=== PATIENT | male | born 1995 | race Caucasian/White ===

== ENCOUNTER 2022-12-13 07:44 | Day surgery (SDC) | payer OTHER ==
[~2022-12-13] VITALS: Ht 193 cm; Wt 113.6 kg
[~2022-12-13 07:44] MED LIST: CETIRIZINE HCL10 MG PO; DICYCLOMINE HCL10 MG PO
--- NOTE | 2022-12-13 10:09 | NUR ---
12/13/22 Christa9 Qing Fung 1006-PATIENT ARRIVED TO PACU ON RA RR EVEN. PATIENT AWAKE DENIES PAIN OR NAUSEA. IVF INFUSING. ABDOMEN SOFT. PATIENT DOZES BACK TO SLEEP
--- NOTE | 2022-12-13 12:55 | NUR ---
PT ALERT, ORIENTED AND RN BASIL IS FINISHING UP PREP. GAVE ENCOURAGEMENT AND BLESSING. WILL FOLLOW NEEDED
--- NOTE | 2022-12-13 15:17 | OR ---
[facility] [address], [place] [address] Signed DATE OF OPERATION: 12/13/2022 SURGEON: Navin Nunez MD PREOPERATIVE DIAGNOSIS: Persistent fecal urgency and diarrhea greater than two years. POSTOPERATIVE DIAGNOSES: Grossly normal colon and ileum; small hyperplastic polyp of rectum. PROCEDURE: 1. Total colonoscopy to cecum with intubation of ileum and biopsies. 2. Cold morcellation polypectomy and small hyperplastic polyp of rectum. ANESTHESIA: Intravenous sedation; fentanyl 100 mcg and Versed 8 mg. INDICATION: This 27-year-old white man is a patient Dr. Loaiza and son of Dr. Ad Martínez, family physician now retired from [place], [place]. 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 The patient has had rather significant and worsening fecal urgency and diarrhea. He has approximately six bowel movements a day. He has no blood per rectum. He is not known to have had enteric infection in the past. He has no family history of inflammatory bowel disease, though he does have family history of colon cancer in a paternal grandmother. He has not had evaluation of his colon up to this point. He is now recommended to undergo colonoscopy to better characterize the problem. He understands the risk of bleeding, infection, and perforation. FINDINGS: The prep was excellent. Complete colonoscopy was undertaken to the cecum and intubation of the ileum was accomplished without problem as well. The ileum and colon all appeared normal. There is no evidence of overt colitis, diverticular disease, or cancer. There was a small hyperplastic polyp of the rectum, which was excised. DESCRIPTION OF PROCEDURE: The patient was brought to the endoscopy suite and placed in the lateral decubitus position, given intravenous sedation to the point of slurred speech and nystagmus. Full cardiopulmonary monitoring was maintained. Digital rectal examination was normal. An Olympus video colonoscope was passed in the rectum and manipulated throughout the Electronically Signed By: NAVIN NUNEZ MD 12/13/22 1517 PATIENT NAME: NICOLE MARTÍNEZ OPERATIVE REPORT DATE OF : [birth year] REPORT #: [id number] PHYSICIAN: NAVIN NUNEZ MD PCP: NAIN LOAIZA MD REPORT IS CONFIDENTIAL AND NOT TO BE RELEASED WITHOUT AUTHORIZATION [facility] [address], [place] [address] Signed colon ultimately intubating the cecum itself. The ileocecal valve and appendiceal orifice were normal. The ileocecal valve was easily intubated and the scope passed approximately 10 cm into it. There is no evidence of Crohn disease. Villous structures were entirely normal. Biopsies were taken nevertheless. The scope was withdrawn to the cecum where biopsies were additionally taken and sequential biopsies taken throughout the entire colon. There is no overt colitis, diverticular disease, or cancer. There is a small hyperplastic polyp of the rectum, which was excised as well. Retroflexed view was normal as well. The scope was removed and the patient was taken to the recovery room in good condition. CONCLUDING DIAGNOSIS: No evidence of colitis, though possibility of microscopic colitis (collagenous colitis, lymphocytic colitis, etc.) remains pending biopsy results. For now, we will empirically treat with Flagyl 250 mg p.o. t.i.d. with special instructions to avoid alcohol during that medication course. If this does not improve his symptoms and no overt findings of microscopic colitis are noted on pathologic evaluation, then symptom control may be initiated to include loperamide 2 mg tablets two tablets p.o. b.i.d. advancing to no more than 16 mg daily. The possibility of celiac disease (gluten enteropathy) is considered as well. A gluten enteropathy panel will be obtained today as well. Navin Nunez MD /SONIAL /[id number] cc: DO Nain Singh MD Copies: AD MARTÍNEZ RUSSELL BARR MD ~ Electronically Signed By: NAVIN NUNEZ MD 12/13/22 1517 PATIENT NAME: ISA MARTÍNEZCHARY VON OPERATIVE REPORT DATE OF : [birth year] REPORT #: [id number] PHYSICIAN: NAVIN NUNEZ MD PCP: NAIN LOAIZA MD REPORT IS CONFIDENTIAL AND NOT TO BE RELEASED WITHOUT AUTHORIZATION
--- NOTE | 2022-12-17 13:09 | PATH ---
[facility] [address], [place] [address] Signed SPECIMEN(S): A TERMINAL ILEUM BIOPSIES SPECIMEN(S): B CECUM BIOPSIES SPECIMEN(S): C ASCENDING/RIGHT COLON BIOPSIES SPECIMEN(S): D TRANSVERSE COLON BIOPSIES SPECIMEN(S): E DESCENDING/LEFT COLON BIOPSIES SPECIMEN(S): F SIGMOID COLON BIOPSIES SPECIMEN(S): G RECTAL POLYP SPECIMEN(S): H RECTUM BIOPSIES SPECIMEN SOURCE: A. TERMINAL ILEUM BIOPSIES B. CECUM BIOPSIES C. ASCENDING/RIGHT COLON BIOPSIES D. TRANSVERSE COLON BIOPSIES E. DESCENDING/LEFT COLON BIOPSIES F. SIGMOID COLON BIOPSIES G. RECTAL POLYP H. RECTUM BIOPSIES CLINICAL HISTORY: Chronic diarrhea. Postop: Hyperplastic polyp of rectum. FINAL PATHOLOGIC DIAGNOSIS: A. Terminal ileum, biopsy: - Terminal ileum mucosa with normal villous architecture. - Negative for acute, chronic, and granulomatous inflammation. - Negative for dysplasia and malignancy. B. Cecum, biopsy: - Colonic mucosa with normal glandular architecture. - Subepithelial collagen layer is normal in thickness. - Negative for inflammation, dysplasia and malignancy. C. Ascending/right colon, biopsy: - Colonic mucosa with normal glandular architecture. - Subepithelial collagen layer is normal in thickness. - Negative for inflammation, dysplasia and malignancy. D. Transverse colon, biopsy: - Colonic mucosa with normal glandular architecture. - Subepithelial collagen layer is normal in thickness. - Negative for inflammation, dysplasia and malignancy. E. Descending/left colon, biopsy: - Colonic mucosa with normal glandular architecture. PATIENT NAME: NICOLE MARTÍNEZ PATHOLOGY DATE OF : [birth year] REPORT #: [id number] PHYSICIAN: GAMAL BLACK PCP: NAIN MACIAS MD REPORT IS CONFIDENTIAL AND NOT TO BE RELEASED WITHOUT AUTHORIZATION [facility] [address], [place] [address] Signed - Subepithelial collagen layer is normal in thickness. - Negative for inflammation, dysplasia and malignancy. F. Sigmoid colon, biopsy: - Colonic mucosa with normal glandular architecture. - Subepithelial collagen layer is normal in thickness. - Negative for inflammation, dysplasia and malignancy. G. Rectal polyp, biopsy: - Hyperplastic polyp; 1 of 2 pieces. - Unremarkable colonic mucosa; 1 of 2 pieces. - Negative for inflammation, dysplasia and malignancy. H. Rectum, biopsy: - Rectal mucosa with normal glandular architecture. - Subepithelial collagen layer is normal in thickness. - Negative for inflammation, dysplasia and malignancy. SDL:manuels:C2NR MICROSCOPIC EXAMINATION: Histologic sections of all submitted blocks are examined by light microscopy. These findings, together with the gross examination, support the pathologic diagnosis. GROSS DESCRIPTION: A. The specimen, labeled and designated "Ronelki, terminal ileum biopsies," is received in formalin and consists of multiple dave soft tissue fragments, 0.1-0.3 cm. Entirely submitted in (A1). B. The specimen, labeled and designated "Szumski, cecum colon biopsies," is received in formalin and consists of four dave soft tissue fragments, ranging from 0.2-0.5 cm. Entirely submitted in (B1). C. The specimen, labeled and designated "Dylonumski, ascending/right colon biopsy," is received in formalin and consists of four dave soft tissue fragments, ranging from 0.2-0.4 cm. Entirely submitted in (C1). D. The specimen, labeled and designated "Szumski, transverse colon biopsies," is received in formalin and consists of six dave soft tissue fragments, ranging from 0.1-0.2 cm. Entirely submitted in (D1). E. The specimen, labeled and designated "Alexx, descending/left colon biopsy," is received in formalin and consists of three dave soft tissue fragments, ranging from 0.2-0.3 cm. Entirely submitted in (E1). PATIENT NAME: NICOLE MARTÍNEZ PATHOLOGY DATE OF : [birth year] REPORT #: [id number] PHYSICIAN: GAMAL BLACK PCP: NAIN MACIAS MD REPORT IS CONFIDENTIAL AND NOT TO BE RELEASED WITHOUT AUTHORIZATION [facility] [address], [place] [address] Signed F. The specimen, labeled and designated "Alexx, sigmoid colon biopsies," is received in formalin and consists of four dave soft tissue fragments, ranging from 0.3-0.4 cm. Entirely submitted in (F1). G. The specimen, labeled and designated "Alexx, rectal polyp," is received in formalin and consists of one dave soft tissue fragment, 0.4 cm. Entirely submitted in (G1). H. The specimen, labeled and designated "Alexx, rectum biopsies," is received in formalin and consists of five dave soft tissue fragments, ranging from 0.2-0.3 cm. Entirely submitted in (H1). VB (under the direct supervision of a pathologist) The Gross Description was prepared using a voice recognition system. The report was reviewed for accuracy; however, sound-alike word errors, addition and/or deletions may occur. If there is any question about this report, please contact Client Services. PERFORMING LABORATORY: The technical component was performed by [facility], [address] [place] [address] (CLIA# [id number]). Professional interpretation was performed at [facility], [address] [place] [address]. Diagnostician: Coni Clay MD Pathologist Electronically Signed 12/17/2022 Copies: ~ PATIENT NAME: NICOLE MARTÍNEZ PATHOLOGY DATE OF : [birth year] REPORT #: [id number] PHYSICIAN: GAMAL BLACK PCP: NAIN MACIAS MD REPORT IS CONFIDENTIAL AND NOT TO BE RELEASED WITHOUT AUTHORIZATION
== END 2022-12-13 10:50 | disposition home or self-care (01) ==
LOC: DS 07:44 → OPS 07:44 → DS 12:15
PROVIDERS: ATTEND Surgery
PROC: 0DBP8ZX Excision of Rectum, Via Natural or Artificial Opening Endoscopic, Diagnostic (ICD-10-PCS; 2022-12-13)
PROC: 0DBC8ZX Excision of Ileocecal Valve, Via Natural or Artificial Opening Endoscopic, Diagnostic (ICD-10-PCS; 2022-12-13)
PROC: 0DBH8ZX Excision of Cecum, Via Natural or Artificial Opening Endoscopic, Diagnostic (ICD-10-PCS; principal; 2022-12-13 09:00)
DX: K62.1 Rectal polyp (principal); K52.9 Noninfective gastroenteritis and colitis, unspecified; R15.2 Fecal urgency; H91.90 Unspecified hearing loss, unspecified ear; Z88.0 Allergy status to penicillin
CPT/HCPCS: 99153; G0500; J2250; J3010; J7121